=== PATIENT | male | born 1975 | race Caucasian/White ===

== ENCOUNTER 2016-12-06 08:05 | Emergency (ER) ==
--- NOTE | 2016-12-06 09:04 | PROVIDER DOCUMENTATION ---
[id number] Abuse/Overdose - General Source: EMS - History of Present Illness-Drug/Alcohol This episode of drinking or use began:: just prior to arrival Situational problems related to:: reports: N/A Psychiatric Complaints: reports: denies symptoms Associated Symptoms: reports: denies symptoms Any injuries associated with this episode of intoxication?: No Similar Symptoms Previously?: No Recently seen or treated by another doctor?: No - Substance Abuse Substance Use: reports: benzodiazepines, opiates - Overdose Intentional drug overdose?: No List substance(s) ingested.: xanax and roxycontin <Sheila Starkey - Last Filed: 12/06/16 09:35> <Saud Li I - Last Filed: 12/06/16 11:36> - General Chief Complaint: Overdose Stated Complaint: overdose Time Seen by Provider: 12/06/16 08:16 Allergies/Adverse Reactions: Allergies Allergy/AdvReac Type Severity Reaction Status Date / Time venom-honey bee Allergy ANAPHYLAXIS Verified 12/06/16 08:15 [bee venom (honey bee)] Home Medications: Home Medication List Medication Instructions Recorded Confirmed Last Taken Type No Home Medications 12/06/16 12/06/16 Unknown History - History of Present Illness-Drug/Alcohol Nature of Presenting Problem: Pt is a 41 yom who came to the ED via EMS with a cc of overdosing. Pt was found at his house by his family unresponsive due to taking and unknown amount of xanax and roxycontin. Pt has a hx of drug abuse and goes to the [place] and they do no give him the narcotics. When EMS arrived they have him narcan and he woke up. (Sheila Starkey) Review of Systems - Adult - REVIEW OF SYSTEMS - ADULT Constitutional: denies: chills, fever Eyes: reports: no symptoms reported Ears, Nose, Mouth & Throat: reports: no symptoms reported Cardiovascular: reports: no symptoms reported Respiratory: reports: no symptoms reported Gastrointestinal: denies: diarrhea, nausea, vomiting Genitourinary: reports: no symptoms reported Musculoskeletal: denies: joint pain, neck pain Integumentary: reports: no symptoms reported Neurological: reports: no symptoms reported Psychiatric: reports: alcohol/drug dependence. denies: anxiety, panic attacks Endocrine: reports: no symptoms reported Hematologic/Lymphatic: reports: no symptoms reported Allergic/Immunologic: reports: no symptoms reported All Other Systems: Reviewed and Negative <JakySheila - Last Filed: 12/06/16 09:35> Past History - Adult - PAST MEDICAL HISTORY-ADULT Review of Records: reports: Old Records Reviewed, Nursing Assessment Review Major Childhood Illnesses: reports: denies history Cardiovascular: reports: HTN Respiratory: reports: denies history Gastrointestinal: reports: denies history Obstetrical/Gynecological: reports: denies history Genitourinary: reports: denies history Musculoskeletal: reports: chronic pain (lower back) Neurological: reports: denies history Psychiatric: reports: ptsd Endocrine/Immune: reports: denies history Other Conditions: reports: denies history - PRIOR SURGERIES/PROCEDURES Surgical/Procedure History: reports: hernia repair, other (feet) - IMMUNIZATION STATUS Childhood Immunizations: See Nurse Assessment Flu Vaccine: See Nurse Assessment - FAMILY HISTORY Family History: reviewed, not pertinent <JakySheila - Last Filed: 12/06/16 09:35> Physical Exam-General - PHYSICAL EXAM-ADULT Initial Vital Signs Reviewed: Yes - CONSTITUTIONAL General Appearance: alert, no apparent distress - EYES Eyes: PERRL/EOMI, pink conjunctivae, fundi clear, no AV nicking - HEAD, EARS, NOSE, MOUTH & THROAT HENMT: normocephalic/atraumatic, moist mucous membranes, normal ENT inspection, TMs normal, pharynx normal - NECK Neck: non-tender - RESPIRATORY Respiratory: chest non-tender, lungs clear, normal breath sounds, no pleuratic chest pain, no respiratory distress, no accessory muscle use - CARDIOVASCULAR Cardiovascular: normal peripheral pulses, regular rate, rhythm, no edema, no gallop, no JVD, no murmur - GASTROINTESTINAL (ABDOMEN) Abdominal Exam: normal bowel sounds, non tender, soft, no organomegaly, no pulsatile mass - MUSCULOSKELETAL Back Exam: normal inspection - SKIN Integumentary: normal color, normal turgor, warm/dry - NEUROLOGIC Neurologic: grossly normal - PSYCHIATRIC Psych/Mental Status: normal mood/affect, normal thought content, normal thought process <JakySheila - Last Filed: 12/06/16 09:35> Progress - REASSESSMENT Reassessment #1 Time Reassessed: 09:03 (Pt is receiving the overdose protocall) Status: unchanged - EKG 1 Time of EKG reading by physician:: 09:12 EKG Read and Signed by:: Saud Li EKG Interpretation (*Must complete 3 of following elements*): Normal Rate: 84 Rhythm: NSR <Sheila Starkey - Last Filed: 12/06/16 09:35> - REASSESSMENT Reassessment #1 Status: improving <Saud Li I - Last Filed: 12/06/16 11:36> - PLAN OF CARE/RESULTS Progress/Plan/Lab Results: Vital Signs - 24 hr 12/06/16 08:10 Temperature 97.8 F Pulse Rate 87 Respiratory 18 Rate Blood Pressure 152/87 O2 Sat by Pulse 95 Oximetry Orders Category Date Time Status Cardiac Monitoring DIRECTED Care 12/06/16 08:17 Active Finger Stick Blood Sugar (ED) DIRECTED Care 12/06/16 08:17 Active Saline Loc DIRECTED Care 12/06/16 08:17 Active ACETAMINOPHEN [TDM] Stat Lab 12/06/16 08:17 Ordered ALCOHOL BLOOD Stat Lab 12/06/16 08:17 Ordered CBC WITH ELECTRONIC DIFF [HEME] Stat Lab 12/06/16 08:17 Ordered COMPREHENSIVE METABOLIC PANEL [CHEM] Stat Lab 12/06/16 08:17 Ordered SALICYLATES [TDM] Stat Lab 12/06/16 08:17 Ordered URINE DRUG SCREEN Stat Lab 12/06/16 08:30 Received Pulse Oximetry Stat Oth 12/06/16 08:17 Active EKG [EKG] Stat Ther 12/06/16 08:17 Ordered (Sheila Starkey) 11:30 AM Patient is hemodynamically stable. Denies any complaints. Remorseful about taking street narcotics (Saud Li I) Departure <Sheila Starkey - Last Filed: 12/06/16 09:35> - Departure Time of Disposition Order: 11:35 Certified Medical Emergency: Emergent <Saud Li I - Last Filed: 12/06/16 11:36> - Departure DIAGNOSIS: Narcotic abuse Disposition: HOME 01 Condition: Stable Attestation - Scribe Verification/Attestation Scribe:: Sheila Starkey Acting as Scribe for:: Saud Li Scribe documention review:: This chart was documented by a scribe and accurately reflects the service the provider performed and the decisions made by the provider. <Sheila Starkey - Last Filed: 12/06/16 09:35> Physician Attestation - Physician Attestation I, the provider, attest to the following statement:: Saud Li Physician documentation Attestation:: This documentation recorded by the scribe accurately reflects the service I personally performed and the decisions made by me. <Saud Li I - Last Filed: 12/06/16 11:36>
[2016-12-06 09:15] LABS: BASO% 0.1 % (0.0-0.8); EOS# 0.06 X1000 (0.0-0.7); EOS% 0.3 % (0.0-10.0); HEMATOCRIT 40.7 % (42.0-52.0); HEMOGLOBIN 14.2 g/dL (14.0-18.0); IMM GRAN# 0.05 X1000 (0.0-0.04); IMM GRAN% 0.3 % (0.0-0.5); LYMPH# 0.99 X1000 (1.2-3.4); MANUAL DIFF NEEDED? NO; MCH 31.1 PG (27-31); MCHC 34.9 g/dL (33-37); MCV 89.1 FL (81-99); MONO# 0.64 X1000 (0.11-0.59); MONO% 3.2 % (1.7-9.3); MPV 9.2 FL (7.4-10.4); NEUT% 91.1 % (42.2-75.2); PLT 291 X1000 (130-400); RBC 4.57 XMIL (4.7-6.1)
[2016-12-06 09:25] LABS: UR AMPHETAMINES QUAL NONE DETECTED (NONE DETECT); UR BARBITUATES QUAL NONE DETECTED (NONE DETECT); UR BENZODIAZEPIN QUAL NONE DETECTED (NONE DETECT); UR CANNABINOIDS QUAL NONE DETECTED (NONE DETECT); UR COCAINE QUAL NONE DETECTED (NONE DETECT); UR METHADONE QUAL NONE DETECTED (NONE DETECT); UR OPIATES QUAL PRESUMPTIVE POSITIVE (NONE DETECT); UR OXYCODONE QUAL NONE DETECTED (NONE DETECT); UR PCP QUAL NONE DETECTED (NONE DETECT)
[2016-12-06 09:37] LABS: AGAP 8; ALBUMIN 3.8 g/dL (3.5-5.0); ALKALINE PHOSPHATASE 57 U/L (32-122); BUN 10 mg/dL (8-22); CALCIUM 8.5 mg/dL (8.8-10.2); CHLORIDE 100 mmol/L (98-107); COSMO 281; GOT 30 U/L (10-34); GPT 38 U/L (10-44); POTASSIUM 4.7 mmol/L (3.5-5.1); SODIUM 138 mmol/L (136-145); TCO2 30 mmol/L (25-35); TOTAL BILIRUBIN 0.16 mg/dL (0.20-1.00)
[2016-12-06 11:16] VITALS: BP 152/87
[2016-12-06 11:17] LABS: ACETAMINOPHEN < 1.2 ug/mL (10-30)
--- NOTE | 2016-12-07 07:35 | EKG Report ---
Test Performed on : 12/06/2016 09:12:13 AM Test Reason : OVERDOSE Blood Pressure : / mmHG Vent. Rate : 084 BPM Atrial Rate : 084 BPM P-R Int : 154 ms QRS Dur : 084 ms QT Int : 366 ms P-R-T Axes : 023 052 028 degrees QTc Int : 432 ms Normal sinus rhythm. Normal ECG No previous ECGs available Unconfirmed Result
== END 2016-12-06 12:08 | disposition home or self-care (01) ==
LOC: EDBD → ED 08:05
DX: F11.10 Opioid abuse, uncomplicated (principal); I10 Essential (primary) hypertension; G89.29 Other chronic pain; M54.5 Low back pain
CPT/HCPCS: 80053; 82948; 85025; 93005; G0480; 80320; 80324; 80329; 80345; 80346; 80349; 80353; 80358; 80361; 80365; 83992